=== PATIENT | male | born 1990 | race Caucasian/White ===

== ENCOUNTER 2020-07-07 13:01 | Outpatient (REF) | payer OTHER, SELFPAY | END 2020-07-07 13:02 | disposition home or self-care (01) | LOC: HO.LAB 13:01 | PROVIDERS: Visit Provider Internal Medicine | DX: Z20.828 Contact with and (suspected) exposure to other viral communicable diseases (principal) | CPT/HCPCS: U0003 ==

== ENCOUNTER 2020-08-30 07:37 | Emergency (ER) | payer OTHER, SELFPAY ==
[2020-08-30 07:52] VITALS: BP 125/81; PULSE 78; RESP 18; TEMP 36.7; O2SAT 95; BMI 23.6
--- NOTE | 2020-08-30 08:51 | ED.EYEPROB ---
HPI - Eye Problem General Chief complaint: Eye Problems Stated complaint: fb eye Time Seen by Provider: 08/30/20 08:19 Source: patient Mode of arrival: ambulatory History of Present Illness HPI Narrative: 30-year-old male with no significant past medical history presenting to ED complaining of right eye pain/irritation since Tuesday S/P using metal fabricator welder. Denies wearing glasses or contacts. Tetanus not up today. Reports mild intermittent blurry vision. Denies visual loss, pain with extraocular motions, or visualized foreign body MD chief complaint: eye pain and eye redness Related Data Previous Rx's Medication Instructions Recorded polymyxin B sulf-trimethoprim 1 drp OPHTHALMIC-RIGHT QID 7 Days 08/30/20 #10 ml Allergies Allergy/AdvReac Type Severity Reaction Status Date / Time No Known Allergies Allergy Unverified 05/22/20 19:45 [No Known Allergies*] Review of Systems Review of Systems: Constitutional: No Weight loss, No Fever, No Chills ENT/Mouth: +eye irritation, No Ear Pain, No sore throat, No Rhinorrhea Cardiovascular: No Chest Pain, No SOB Skin: No Skin Lesions, No rash Neuro: No headache Yes all other systems are reviewed and are negative [facility] Past Medical History Attestation statement: The following information was validated with the patient. Medical History (Updated 08/30/20 @ 09:37 by SATISH Joya) No known health problems Social History Social History Advance Directives: No Advance Directives Information Provided: Yes Physical Exam Vital Signs: Vital Signs: Last Vital Signs Temp 98.1 F 08/30/20 07:52 Pulse 78 08/30/20 07:52 Resp 18 08/30/20 07:52 BP 125/81 08/30/20 07:52 Pulse Ox 95 08/30/20 07:52 Body Mass Index 23.6 Const: General: cooperative and healthy appearing Orientation/consciousness: patient oriented x3 Limitations: no limitations HENMT: Head: Yes normal to inspection Ears: hearing grossly normal bilaterally General nose exam: Normal external nose present Face and sinus: Yes normal facial exam Eyes: Other: Right eye with mild irritation. + small metal foreign body in right eye at 9 o'clock region. No rust ring. EOMs intact without pain. No evidence of globe rupture. General: appearance normal, both eyes and all related structures Pupils: Equal, round and reactive pupils present EOM: EOMs intact bilaterally (Without pain) Direct Ophthalmoscopy: normal light reflex and no photophobia Neck: Neck: Yes normal visual inspection Skin: Rashes: no rashes Wounds: no wounds Neuro: General: patient oriented x3 Cranial nerves: Yes Equal, round and reactive pupils present Gait exam (Neuro): Normal gait present Extrem: General: Yes normal to inspection Procedures FB Removal Eye Location: eye (R) Topical anesthetic used: tetracaine Foreign body: metal Evidence of corneal penetration: No Technique: cotton tip swab and needle Procedure performed under: slit-lamp Post-procedure medication: ophthalmic antibiotic Patient tolerated procedure: well Complications: incomplete foreign body removal MDM - Eye Problem MDM Narrative Medical decision making narrative: Eye was stained with fluorescein without evidence of corneal abrasion. Used 18 gauge needle and cotton tip with slit lamp used by Dr. Vivar, with near complete removal of foreign body. Small residual metal in eye. Will have patient follow-up with Ophthalmology on Tuesday Antibiotic drops sent to pharmacy Discharge Plan Discharge Clinical Impression: Eye foreign body Qualifiers: Encounter type: initial encounter Laterality: right Qualified Code(s): T15.91XA - Foreign body on external eye, part unspecified, right eye, initial encounter Patient Disposition: Home, Self-Care Instructions: Eye Foreign Body (ED) Additional Instructions: You have a piece of metal in your eye, most of the metal was removed today in the emergency department Polymyxin B antibiotic eyedrops were sent to the pharmacy, use as prescribed You need to follow-up with the software sales manager on Tuesday They will remove the remaining parts of the foreign body If he developed visual loss, unbearable pain return to the ED sooner Take Tylenol Motrin at home for pain Prescriptions: New polymyxin B sulf-trimethoprim 10,000 unit- 1 mg/mL drops 1 drp ophthalmic-Right QID 7 Days Qty: 10 RF: 0 Referrals: Julián Lynn [Physician] - 2 days (on Tuesday)
[2020-08-30] MEDS: Tetracaine HCl/PF 0.5% Oph Sol 4 ML DROPS 3 DROP EYE-RIGHT (08:53)
[2020-08-30] MEDS: Fluorescein Sodium STRIP 1 STRIP EYE-RIGHT (08:53)
--- NOTE | 2020-08-30 09:54 | PC.NURSE ---
visual acuity 20/50 right 20/40 left
== END 2020-08-30 09:52 | disposition home or self-care (01) ==
PROVIDERS: Emergency Provider Emergency Medicine Emergency Medical Services
DX: T15.01XA Foreign body in cornea, right eye, initial encounter (principal); X58.XXXA Exposure to other specified factors, initial encounter
CPT/HCPCS: 65222; 90471; 90715; 99283; 99284

== ENCOUNTER 2020-09-20 13:20 | Emergency (ER) | payer MEDICAID, SELFPAY ==
[2020-09-20 16:33] VITALS: BP 116/70; PULSE 72; RESP 16; TEMP 37.1; O2SAT 97; BMI 23.7
--- NOTE | 2020-09-20 17:52 | ED.EYEPROB ---
HPI - Eye Problem General Chief complaint: Eye Problems Stated complaint: FB in eye Time Seen by Provider: 09/20/20 17:02 Source: patient Mode of arrival: ambulatory Limitations: no limitations History of Present Illness HPI Narrative: Patient presents to ED for right eye irritation. Patient states metal/foreign body went into right eye 4 days ago. Patient states still has foreign body in right eye after 4 days. Patient denies any change in vision just eye irritation and watery discharge. MD chief complaint: eye redness Related Data Previous Rx's Medication Instructions Recorded polymyxin B sulf-trimethoprim 1 drp OPHTHALMIC-RIGHT QID 7 Days 08/30/20 #10 ml erythromycin 0.5 inch OPHTHALMIC (EYE) QID 7 09/20/20 Days #3.5 g ibuprofen 400 mg PO Q6H PRN #28 tab 09/20/20 Allergies Allergy/AdvReac Type Severity Reaction Status Date / Time No Known Allergies Allergy Unverified 05/22/20 19:45 [No Known Allergies*] Review of Systems Review of Systems: Yes all other systems are reviewed and are negative Constitutional: Constitutional: Reports as per HPI and Reports no additional constitutional complaints Eyes: Eyes: Reports as per HPI and Reports no additional eye complaints Comments: Right eye irritation and redness ENT: Reports system reviewed and no additional complaints, except as documented and Reports as per HPI Cardiovascular: Cardiovascular: Reports as per HPI and Reports no additional cardiovascular complaints Respiratory: Respiratory: Reports as per HPI and Reports no additional respiratory complaints Gastrointestinal: Gastrointestinal: Reports as per HPI and Reports no additional gastrointestinal complaints Musculoskeletal: Musculoskeletal: Reports no additional musculoskeletal complaints and Reports as per HPI Neurologic: Reports system reviewed and no additional complaints, except as documented and Reports as per HPI Psychiatric: Psychiatric: Reports no additional psychiatric complaints and Reports as per HPI [facility] Past Medical History Medical History (Updated 09/21/20 @ 00:00 by Background Daemon) No known health problems Social History Social History Smoked in Last 30 Days: No Use of substances other than those prescribed or required for medical reasons: No Advance Directives: No Advance Directives Information Provided: No Physical Exam Vital Signs: Vital Signs: Last Vital Signs Temp 98.8 F 09/20/20 16:33 Pulse 72 09/20/20 16:33 Resp 16 09/20/20 16:33 BP 116/70 09/20/20 16:33 Pulse Ox 97 09/20/20 16:33 Body Mass Index 23.7 Const: General: cooperative, healthy appearing, comfortable, no acute distress, well developed, alert, awake and Physically active Orientation/consciousness: patient oriented x3 HENMT: Head: Yes normal to inspection, Yes No palpable skull fracture present, Yes normocephalic and Yes atraumatic Eyes: Other: Positive for very minute small rustic object on right lower side of iris. Fluorescein dye test negative for any corneal abrasion/signs of globe rupture under wood's lamp. Negative for leakage of fluid from iris on dye test Neck: Neck: Yes normal visual inspection and Yes full ROM Chest: Chest palpation & inspection: normal inspection of the chest and normal palpation of entire chest wall Resp: Effort & Inspection: normal respiratory effort and able to speak in complete sentences Cardio: Jugular venous distension: no JVD Heart sounds: S1 normal heart sound present and S2 normal heart sound present GI: Inspection: Yes normal to inspection Palpation (GI): Soft to palpation, not firm, nontender, no guarding and not rigid : General: No CVA tenderness and Yes no CVA tenderness Back/Spine/Pelvis: Back: no CVA tenderness, No CVA tenderness and No back tenderness Skin: General skin exam: no rashes or lesions noted and elasticity normal Neuro: General: patient oriented x3 and CN's II-XI intact bilaterally Cranial nerves: Yes CN's II-XII intact bilaterally Extrem: General: Yes normal to inspection and Yes full ROM Psych: Appearance: grossly normal, well kempt and not disheveled Course Course Course Narrative: Will do bedside eye exam with fluorescein stye, tetracaine, and Wood's lamp. Reevaluation(s) Reevaluation #1: Right eye positive for small rusting foreign body at right lower aspect of iris. I anesthetized with tetracaine. Fluorescein dye was used and was negative for signs of corneal abrasion or globe rupture. Removal of foreign body was not successful after mulltiple attempts. Patient will follow-up with Ophthalmology for removal of foreign body and rusting. Patient will be sent home with antibiotics and follow up with opthomology on tuesday. Right eye visual acuity is 20/40. Left eye visual acuity 20/30 . Patient states he is up-to-date with tetanus Time: 18:19 MDM - Eye Problem MDM Narrative Medical decision making narrative: foreign body in eye Discharge Plan Discharge Clinical Impression: Foreign body in eye Patient Disposition: Home, Self-Care Instructions: Eye Foreign Body (ED) Additional Instructions: Return to the ED for change or loss of vision, eye pain, eye swelling, headache, red yellow discharge, or any other concerning symptoms. Prescriptions: New erythromycin 5 mg/gram (0.5 %) ointment 0.5 inch ophthalmic (eye) QID 7 Days Qty: 3.5 RF: 0 ibuprofen 400 mg tablet 400 mg PO Q6H PRN (Reason: pain) Qty: 28 RF: 0 No Action polymyxin B sulf-trimethoprim 10,000 unit- 1 mg/mL drops 1 drp ophthalmic-Right QID 7 Days Qty: 10 RF: 0 Referrals: Julián Lynn [Physician] - 2 days (Right eye foreign Body removal attempt failed. Need to be removed by opthomalogist. Patient started on erythromycin antibiotics. Rigth eye flourscein dye test negative for corneal abrasions or signs of globe rupture. ) Stand Alone Forms: Work/School Release Interventions: ED Discharge Assessment Last Done: 09/20/20 18:37 Discharge Date/Time: 09/20/20 18:42 Print Language: Micronesian
[2020-09-20] MEDS: Fluorescein Sodium STRIP 1 STRIP EYE-RIGHT (18:05)
[2020-09-20] MEDS: Tetracaine HCl/PF 0.5% Oph Sol 4 ML DROPS 3 DROP EYE-RIGHT (18:06)
--- NOTE | 2020-09-20 18:07 | PC.NURSE ---
SATISH JUÁREZ AT BEDSIDE TO REMOVE METAL FROM RIGHT EYE UNABLE TO REMOVE PIECE OF METAL PT WILL NEED TO F/U WITH CONSTRUCTION CHECKER.
== END 2020-09-20 18:42 | disposition home or self-care (01) ==
PROVIDERS: Emergency Provider Emergency Medicine
DX: T15.01XA Foreign body in cornea, right eye, initial encounter (principal); H57.11 Ocular pain, right eye; X58.XXXA Exposure to other specified factors, initial encounter; Y93.9 Activity, unspecified; Y92.9 Unspecified place or not applicable; Y99.9 Unspecified external cause status
CPT/HCPCS: 99283; 99284

== ENCOUNTER 2022-07-01 14:37 | Emergency (ER) | payer MEDICAID, SELFPAY ==
--- NOTE | ~2022-07-01 | CT_ITS ---
EXAMINATION: CT ABDOMEN AND PELVIS WITHOUT CONTRAST CLINICAL INFORMATION: Abdominal pain COMPARISON: None TECHNIQUE: Multidetector volumetric imaging was performed from the superior aspect of the liver through the pubic symphysis. Sagittal and coronal reformatted images were obtained on the technologist's workstation. This CT examination was performed using dose optimization techniques as appropriate, variously including the following: *Automated exposure control *Adjustment of mA and/or kV according to patient size (this includes techniques or standardized protocols for targeted exams where dose is matched to indication/reason for exam; i.e. extremities or head) *Use of iterative reconstruction technique DLP: 424 mGy-cm FINDINGS: LUNG BASES: The visualized lung bases are unremarkable. LIVER, GALLBLADDER, AND BILIARY TREE: The liver is normal in size, shape, and attenuation. No focal hepatic lesion or biliary ductal dilatation is present. The gallbladder is unremarkable with no evidence of radiopaque gallstones, gallbladder wall thickening, or obvious pericholecystic inflammatory changes. PANCREAS: Region the pancreas is is not adequately defined. This is likely due to unopacified adjacent bowel. No obvious finding. No free fluid. SPLEEN: Unremarkable. ADRENAL GLANDS: Unremarkable. KIDNEYS AND URETERS: The kidneys are normal in size, shape, and attenuation. No hydronephrosis, hydroureter, or calculi seen. No perinephric stranding. BLADDER: Unremarkable. GASTROINTESTINAL TRACT: Marked colonic stool in the cecum and ascending colon and transverse colon. More mild to moderate stool in the descending and sigmoid. There is air in the rectum. A normal appendix is not seen The bowel pattern is overall nonobstructing. ABDOMINAL WALL: No significant hernia is appreciated. LYMPH NODES: Surgical clips in the right groin. Some mildly prominent nodes are noted in the groin. There is no bulky periaortic adenopathy. Some prominent mesenteric nodes are noted. VASCULAR: Unremarkable. PELVIC VISCERA: Unremarkable. OSSEOUS STRUCTURES: There is a lucent bony lesion the right iliac bone. This measures 5.7 x 3 x 4.5 cm. Some bony septations are noted. CT/CT abdomen pelvis wo IV con IMPRESSION: Colonic stool is noted. Overall the bowel pattern is felt to be nonobstructing. This exam is limited due to lack of oral and intravenous contrast. No free fluid is identified. It should be noted normal appendix is not visualized but no definitive suspicion around the cecum. Correlation recommended here. Note is made of a large lucent right iliac bony lesion. Pre and postcontrast MRI is recommended to further evaluate Fleischner guidelines were followed.
[2022-07-01 14:38] VITALS: BP 122/81; PULSE 75; RESP 18; TEMP 36.6; O2SAT 98; BMI 22.4
[2022-07-01 15:22] LABS: MANUAL DIFF FLAG NO
[2022-07-01 15:28] LABS: Basophils Percent Auto 0.5 % (0-2); Eosinophils Absolute Auto 0.1 X10*3/uL (0.0-0.4); Eosinophils Percent Auto 2.5 % (0-4); Hematocrit 40.4 % (42.0-52.0); Hemoglobin 13.8 g/dl (14.0-18.0); Imm Gran Abs Auto 0.01 X10*3/uL (0.00-0.03); Imm Gran Pct Auto 0.3 % (0.0-0.4); Lymphocytes Absolute Auto 1.7 X10*3/uL (1.2-4.9); Lymphocytes Percent Auto 43.7 % (20-40); Mean Corpuscular HGB Conc 34.2 g/dl (31.0-36.0); Mean Corpuscular Hemoglobin 29.2 pg (27.0-33.0); Mean Corpuscular Volume 85.6 fL (80.0-98.0); Mean Platelet Volume 9.3 fL (9.4-12.4); Monocytes Absolute Auto 0.4 X10*3/uL (0.1-1.2); Monocytes Percent Auto 11.1 % (2-11); Neutrophils Absolute Auto 1.7 x10*3/uL (2.0-8.3); Neutrophils Percent Auto 41.9 % (45-73); Platelet Count 179 X10*3/uL (160-400); Red Blood Count 4.72 X10*6/uL (4.60-5.80); Red Cell Distribution Width 12.1 % (11.0-16.0)
[2022-07-01 15:40] LABS: Alanine Aminotransferase 9 U/L (0-40); Albumin Level 4.7 g/dL (3.5-5.0); Alkaline Phosphatase 57 U/L (39-117); Anion Gap 14 (12-20); Aspartate Amino Transferase 16 U/L (5-37); Bilirubin Direct 0.5 mg/dL (0.0-0.5); Bilirubin Total 1.5 mg/dL (0.0-1.0); Blood Urea Nitrogen 9 mg/dL (9-16); Calcium 9.7 mg/dL (8.4-10.2); Carbon Dioxide 29 mmol/L (22-29); Chloride 102 mmol/L (96-108); Estimated Glomerular Filt Rate > 60; Glucose Random 94 mg/dL (60-115); Lipase 47 U/L (8-78); Potassium 5.2 mmol/L (3.3-5.1); Sodium 140 mmol/L (135-145)
[2022-07-01 15:41] LABS: Appearance Urine Clear; Color Urine Yellow; Glucose Urine UA Negative (Negative); Leukocyte Esterase Urine Negative (Negative); Nitrite Urine Negative (Negative); Specific Gravity - Urine <= 1.005 (1.005-1.025); Urine Blood Negative (Negative); Urine Ketones Negative (Negative); Urine Protein Negative (Neg-Trace)
--- NOTE | 2022-07-01 20:14 | ED.ABDPAIN ---
HPI - Abdominal Pain General Chief Complaint: Abdominal Pain Stated Complaint: lower R side discomfort Time Seen by Provider: 07/01/22 20:12 Source: patient Mode of arrival: ambulatory Limitations: no limitations History of Present Illness HPI narrative: 31-year-old male presents for evaluation of greater than 1 month of right lower abdominal tenderness. He describes this pain as constant and aching, and feels it is right below his large intestine. He does have a history of lymphadenopathy on the right side and has had a biopsy of a right inguinal groin lymph node. He is on Suboxone, states that he eats a healthy diet, and does not participate in any alcohol or illicit drug activity. Does not describe fevers, chills, chest pain or pressure, abdominal distention, nausea, vomiting, melena, hematochezia, or abnormal weight loss. MD elicited complaint: abdominal pain Pertinent past history: constipation Onset (ago): month(s) Pain Consistency: constant Location: RLQ Severity: moderate Quality: aching and dull Migration to: no migration Relieving factors: nothing Associated symptoms: denies other symptoms Related Data Previous Rx's Medication Instructions Recorded polymyxin B sulfate 10,000 1 drp ophthalmic-Right QID 7 days 08/30/20 unit-trimethoprim 1 mg/mL eye drops #10 mL erythromycin 5 mg/gram (0.5 %) eye 0.5 inch ophthalmic (eye) QID 09/20/20 ointment foreign body in eye 7 days #3.5 grams ibuprofen 400 mg tablet 400 mg PO Q6H PRN pain #28 tabs 09/20/20 Allergies Allergy/AdvReac Type Severity Reaction Status Date / Time No Known Allergies Allergy Unverified 05/22/20 19:45 [No Known Allergies*] Review of Systems Review of Systems Constitutional: No Fever, No Chills ENT/Mouth: No Ear Pain, No Hoarseness, No sore throat Eyes: No Eye Pain, No Swelling, No Redness, No Foreign Body Cardiovascular: No Chest Pain, No SOB Respiratory: No Cough, No Dyspnea Gastrointestinal: No Nausea, No Vomiting, No Diarrhea, positive right lower quadrant abdominal Pain Genitourinary: No Dysuria, No Hematuria Musculoskeletal: No joint pain, No Myalgias, No Joint Swelling Skin: No Skin lacerations, No rash Neuro: No Weakness, No Numbness, No Paresthesias, No Loss of Consciousness, No Dizziness, No Headache Psych: No Anxiety/Panic, No Depression Heme/Lymph: no easy bruising, no Lymphadenopathy Endocrine: No Polyuria, No Polydipsia Yes all other systems are reviewed and are negative [facility] Past Medical History Attestation statement: The following information was validated with the patient. Source: old records reviewed Medical History No known health problems Social History Social History Advance Directives: No Advance Directives Information Provided: No Physical Exam ED Vital Signs: Vital Signs - 24 hr 07/01/22 14:38 07/01/22 20:32 Temperature 97.9 F 98.7 F Pulse Rate 75 55 Respiratory Rate 18 Blood Pressure 122/81 129/72 Pulse Oximetry 98 100 Oxygen Delivery Method Room Air Room Air BMI result Body Mass Index 22.4 Appearance: Alert. Oriented X3. No acute distress. Thin. Eyes: Pupils equal, round and reactive to light. Sclera nonicteric. ENT: Pharynx normal. Moist mucous membranes. Neck: Normal inspection. Neck supple. CVS: Normal heart rate and rhythm. Pulses normal. Respiratory: No respiratory distress. Breath sounds normal. Abdomen: Soft and right lower quadrant tender to palpation. Skin: Skin warm and dry. Normal skin color. Normal skin turgor. Extremities: No lower extremity edema. Gait well-balanced well coordinated. Neuro: No motor deficit. No sensory deficit. Cranial nerves 2-12 intact. Course Course Course Narrative: 31-year-old male with past medical history of right sided inguinal lymphadenopathy with negative biopsy in 2016, history of Suboxone has been substance free since 2019, presents with greater than 1 month of right lower quadrant diffuse abdominal pain. Patient does not report any abnormal weight loss, melena, hematochezia, nausea or vomiting. Physical exam indicates tenderness to palpation to the right lower quadrant. Vital signs are stable and within normal limits, lab values were drawn while patient was in the emergency department waiting room with mild abnormality with a WBC of 4.0, neutrophils 41.9, lymphocyte 43.7, monocytes 11.1. Potassium is 5.2, bili 1.5, without transaminitis. Will order CT scan of abdomen and pelvis to rule out acute abdomen. While patient's white count and vital signs are stable, I feel that further investigation to the right lower quadrant abdominal pain is warranted, considering that he has had a history of right-sided lymphadenopathy with biopsy. 22:00 CT scan indicates stool burden, also noted a large lucent right iliac bony lesion with recommendation of pre and post-contrast MRI. 22:[address] tiger text out [address] Schmidt, heme Oncology, as well as Dr. Valenzuela. Patient is going to need MRI, bone scan, bone biopsy, and possible oncology services. Patient does not have an established primary care, I did reach out to Dr. Valenzuela and did refer patient to our [facility] location on [facility] [address] to establish primary care. Dr. Schmidt will be waiting patient's phone call tomorrow. I did discuss in detail, the possibilities of these results with the patient. He does understand that he must follow-up with heme Onc for MRI, bone scan, and biopsy. I did discuss his constipation, he will use MiraLax daily to help with bowel movements. Patient does have a healthy lifestyle, takes no medications other than Suboxone. Patient verbalized understanding of and agrees to plan of care discharge home. Verbalized understanding of signs and symptoms indicating need for emergent intervention. Consultations Consultation #1: Brayan Time: 22:03 Consultation #2: Nicolas Time: 22:03 MDM - Abdominal Pain Differential Diagnosis Differential diagnosis: Likely abdominal pain, acute appendicitis, calculus of kidney, constipation, diverticulitis and small bowel obstruction Medical Records Attestation: I reviewed the patient's medical records. Lab Data Attestation: I reviewed the patient's lab results. Result diagrams: 07/01/22 15:16 07/01/22 15:16 Labs: Lab Results 07/01/22 07/01/22 07/01/22 Range/Units 15:16 15:16 15:16 WBC 4.0 L (4.8-10.8) X10*3/uL RBC 4.72 (4.60-5.80) X10*6/uL Hgb 13.8 L (14.0-18.0) g/dl Hct 40.4 L (42.0-52.0) % MCV 85.6 (80.0-98.0) fL MCH 29.2 (27.0-33.0) pg MCHC 34.2 (31.0-36.0) g/dl RDW 12.1 (11.0-16.0) % Plt Count 179 (160-400) X10*3/uL MPV 9.3 L (9.4-12.4) fL Immature Gran % (Auto) 0.3 (0.0-0.4) % Neut % (Auto) 41.9 L (45-73) % Lymph % (Auto) 43.7 H (20-40) % Perry % (Auto) 11.1 H (2-11) % Eos % (Auto) 2.5 (0-4) % Baso % (Auto) 0.5 (0-2) % Lymph # (Auto) 1.7 (1.2-4.9) X10*3/uL Perry # (Auto) 0.4 (0.1-1.2) X10*3/uL Eos # (Auto) 0.1 (0.0-0.4) X10*3/uL Baso # (Auto) 0.0 (0.0-0.2) X10*3/uL Abs Immat Gran (auto) 0.01 (0.00-0.03) X10*3/uL Absolute Neuts (auto) 1.7 L (2.0-8.3) x10*3/uL Absolute Nucleated RBC 0.000 (0.0-0.012) X10*3/uL Nucleated RBC % (auto) 0.0 (0.0-0.2) /100WBC Sodium 140 (135-145) mmol/L Potassium 5.2 H (3.3-5.1) mmol/L Chloride 102 (96-108) mmol/L Carbon Dioxide 29 (22-29) mmol/L Anion Gap 14 (12-20) BUN 9 (9-16) mg/dL Creatinine 0.76 (0.5-1.4) mg/dL Estim Creat Clear Calc 149.0 Estimated GFR > 60 Random Glucose 94 (60-115) mg/dL Calcium 9.7 (8.4-10.2) mg/dL Total Bilirubin 1.5 H (0.0-1.0) mg/dL Direct Bilirubin 0.5 (0.0-0.5) mg/dL AST 16 (5-37) U/L ALT 9 (0-40) U/L Alkaline Phosphatase 57 (39-117) U/L Total Protein 7.0 (6.5-8.0) g/dL Albumin 4.7 (3.5-5.0) g/dL Lipase 47 (8-78) U/L Urine Color Yellow Urine Appearance Clear Urine pH 6.0 (5.0-9.0) Ur Specific [place] <= 1.005 (1.005-1.025) Urine Protein Negative (Neg-Trace) mg/dL Urine Glucose (UA) Negative (Negative) mg/dL Urine Ketones Negative (Negative) mg/dL Urine Blood Negative (Negative) Urine Nitrite Negative (Negative) Ur Leukocyte Esterase Negative (Negative) Imaging Data CT scan - abdomen: Attestation: I personally reviewed and interpreted this imaging study as follows: Radiologist's impression: FINDINGS: LUNG BASES: The visualized lung bases are unremarkable.? LIVER, GALLBLADDER, AND BILIARY TREE: The liver is normal in size, shape, and attenuation. No focal hepatic lesion or biliary ductal dilatation is present. The gallbladder is unremarkable with no evidence of radiopaque gallstones, gallbladder wall thickening, or obvious pericholecystic inflammatory changes.? PANCREAS: Region the pancreas is is not adequately defined. This is likely due to unopacified adjacent bowel. No obvious finding. No free fluid.? SPLEEN: Unremarkable.? ADRENAL GLANDS: Unremarkable.? KIDNEYS AND URETERS: The kidneys are normal in size, shape, and attenuation. No hydronephrosis, hydroureter, or calculi seen. No perinephric stranding. ? BLADDER: Unremarkable.? GASTROINTESTINAL TRACT: Marked colonic stool in the cecum and ascending colon and transverse colon. More mild to moderate stool in the descending and sigmoid. There is air in the rectum. A normal appendix is not seen The bowel pattern is overall nonobstructing. ABDOMINAL WALL: No significant hernia is appreciated.? LYMPH NODES: Surgical clips in the right groin. Some mildly prominent nodes are noted in the groin. There is no bulky periaortic adenopathy. Some prominent mesenteric nodes are noted. VASCULAR: Unremarkable. PELVIC VISCERA: Unremarkable.? OSSEOUS STRUCTURES: There is a lucent bony lesion the right iliac bone. This measures 5.7 x 3 x 4.5 cm. Some bony septations are noted.? CT/CT abdomen pelvis wo IV con IMPRESSION: Colonic stool is noted. Overall the bowel pattern is felt to be nonobstructing. This exam is limited due to lack of oral and intravenous contrast. No free fluid is identified. It should be noted normal appendix is not visualized but no definitive suspicion around the cecum. Correlation recommended here. ? Note is made of a large lucent right iliac bony lesion. Pre and postcontrast MRI is recommended to further evaluate ? Fleischner guidelines were followed. Discharge Plan Discharge Clinical Impression: Abdominal pain, Bone lesion Patient Disposition: Home, Self-Care Instructions: Abdominal Pain (ED) Additional Instructions: You were evaluated for right lower quadrant abdominal pain. CT scan of the abdomen and pelvis shows constipation. Please take MiraLax daily. Incidental finding is a 5.7 x 3 x 4.5 cm lucent bony lesion of the right iliac bone. I did reach out to our heme oncologist Dr. Schmidt, she is expecting your call tomorrow. Please call and request an appointment for evaluation. You will need to have an MRI, bone scan, and possibly a bone biopsy. For primary care, I have referred you to Dr. Valenzuela. His office is located on [facility] in [facility]. Thank you for choosing this emergency department for evaluation. Please follow-up with primary care physician as needed. Return to the emergency department for any new, concerning, or worsening symptoms. Prescriptions: No Action polymyxin B sulf-trimethoprim 10,000 unit- 1 mg/mL drops 1 drp ophthalmic-Right QID 7 Days Qty: 10 0RF Rx Instructions: while awake; do not exceed 6 doses in 24 hours erythromycin 5 mg/gram (0.5 %) ointment 0.5 inch ophthalmic (eye) QID 7 Days Qty: 3.5 0RF ibuprofen 400 mg tablet 400 mg PO Q6H PRN (Reason: pain) Qty: 28 0RF Referrals: Doron Schmidt MD [Physician] - 1 day (Bony lesion, rule out malignancy) Dao Valenzuela MD [Physician] - 1 day (Establish primary care) Stand Alone Forms: Work/School Release
[2022-07-01 20:32] VITALS: BP 129/72; PULSE 55; TEMP 37.1; O2SAT 100
[2022-07-01 23:26] VITALS: BP 113/70; PULSE 74; RESP 18; O2SAT 98
== END 2022-07-01 23:28 | disposition home or self-care (01) ==
PROVIDERS: Emergency Provider Emergency Medicine
DX: M89.8X8 Other specified disorders of bone, other site (principal); R10.9 Unspecified abdominal pain; Z79.899 Other long term (current) drug therapy
CPT/HCPCS: 36415; 74176; 80053; 81003; 82248; 83690; 85025; 99283; 99284

== ENCOUNTER 2022-07-14 13:31 | Outpatient (REF) | payer MEDICAID, SELFPAY ==
--- NOTE | ~2022-07-14 | XR_ITS ---
EXAMINATION: CR X-RAY PRE-MRI SCREENING CLINICAL INFORMATION: Pre-MRI screening. COMPARISON: None TECHNIQUE: 3 views of the orbits were obtained. FINDINGS: No radiopaque foreign body is seen. The nasal bones and bony orbits are intact. Mild opacification is seen at the base of the right maxillary sinus. The mastoid air cells appear clear. The soft tissues are unremarkable. XR/XR pre mri screening IMPRESSION: 1. No radiopaque foreign body. 2. Mild opacification at the base of the right maxillary sinus is nonspecific, but could represent a small air-fluid level and/or mucosal thickening.
--- NOTE | ~2022-07-14 | MR_ITS ---
EXAMINATION: MR HIP WITHOUT AND WITH CONTRAST, RIGHT CLINICAL INFORMATION: Right hip discomfort. Right lower quadrant persistent pain. Lucent right iliac bone lesion. COMPARISON: CT abdomen/pelvis dated 07/01/2022. TECHNIQUE: MRI of the right hip was performed before and after the intravenous injection of 7.5 mL Gadavist on a high-field scanner. FINDINGS: ACETABULAR LABRUM: Fluid signal within the undersurface of the anterosuperior labrum which could represent a shallow, nondisplaced undersurface tear. ARTICULAR CARTILAGE/BONE: Mild articular cartilage signal heterogeneity and surface irregularity with small marginal osteophytes. No stress reaction, fracture, or avascular necrosis. Within the right acetabulum, there is a predominantly fat density intraosseous lesion measuring approximately 5.9 x 5.5 x 2.6 cm. There are thin trabeculations within the lesion with a small central cystic focus measuring 0.5 cm. No significant postcontrast enhancement within this region. Minimal posterior central edema without enhancement. No additional lytic or blastic osseous lesion. MUSCLES/TENDONS: Intact. JOINT FLUID/BURSA: Trace joint effusion. INTRAPELVIC STRUCTURES: Unremarkable. MR/MR hip RT wo/w con IMPRESSION: 1. Intraosseous lesion within the right acetabulum measuring up to 5.9 cm. Thin trabeculations within the lesion with a small central cystic focus. No significant postcontrast enhancement. 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 No additional lytic or blastic osseous lesion. 2. Possible shallow, nondisplaced undersurface tear of the anterosuperior labrum. 3. Mild right hip osteoarthritis. Trace joint effusion. No stress reaction, fracture, or avascular necrosis.
== END 2022-07-14 13:32 | disposition home or self-care (01) ==
LOC: HO.MRI 13:31
PROVIDERS: Visit Provider Internal Medicine Medical Oncology
DX: M89.8X8 Other specified disorders of bone, other site (principal); Z78.9 Other specified health status
CPT/HCPCS: 73723; A9585

== ENCOUNTER 2022-12-29 11:32 | Emergency (ER) | payer OTHER, MEDICAID, SELFPAY ==
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
[2022-12-29 11:34] VITALS: BP 129/78; PULSE 78; RESP 18; TEMP 37.1; O2SAT 98; BMI 22.1
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
== END 2022-12-29 14:57 | disposition home or self-care (01) ==
PROVIDERS: Emergency Provider Emergency Medicine
DX: S01.81XA Laceration without foreign body of other part of head, initial encounter (principal); R51.9 Headache, unspecified; W26.9XXA Contact with unspecified sharp object(s), initial encounter; Y93.9 Activity, unspecified; Y92.9 Unspecified place or not applicable; Y99.9 Unspecified external cause status
CPT/HCPCS: 12051; 70450; 99283; 99284

== ENCOUNTER → 2023-01-03 07:56 | Outpatient (BNVA) | payer OTHER, SELFPAY | PROVIDERS: Visit Provider Physician Assistant Medical | DX: S01.81XA Laceration without foreign body of other part of head, initial encounter (principal); W22.8XXA Striking against or struck by other objects, initial encounter; Z48.02 Encounter for removal of sutures | CPT/HCPCS: 99203; 99212 ==

== ENCOUNTER 2023-01-04 12:53 | Emergency (ER) | payer MEDICAID, SELFPAY ==
--- NOTE | ~2023-01-04 | CT_ITS ---
EXAMINATION: CT HEAD WITHOUT CONTRAST CLINICAL INFORMATION: Headache, nausea. COMPARISON: 12/29/[address] scan[address] TECHNIQUE: Contiguous axial imaging was performed from the skull base to vertex without intravenous administration of contrast. Coronal and sagittal reformatted images were obtained. This CT examination was performed using dose optimization techniques as appropriate, variously including the following: *Automated exposure control *Adjustment of mA and/or kV according to patient size (this includes techniques or standardized protocols for targeted exams where dose is matched to indication/reason for exam; i.e. extremities or head) *Use of iterative reconstruction technique DLP: 737 mGy-cm FINDINGS: The cortical sulci are normal. The lateral ventricles are symmetrical. The third and fourth ventricles are in their normal midline position. The basilar and prepontine cisterns are unremarkable. There is no acute intra or extracerebral abnormality. There is no mass effect or midline shift. Sections through the bony calvarium are unremarkable. The paranasal sinuses and show a mass, mildly hypoattenuating compared to the adjacent osseous structures in the left ethmoid and sphenoid sinuses with mild expansion including an associated shallow sella turcica. Homogeneous sclerotic changes are also seen in the left frontal sinus. More homogeneous osseous nodule seen medially in the right frontal sinus. Mild mucosal thickening and small air-fluid levels are seen in the maxillary sinuses. The bony orbits and orbital contents are unremarkable. CT/CT head/brain wo IV con IMPRESSION: 1. No acute intracranial pathology. 2. 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 This is nonspecific, but the overall appearance is benign/low-grade without significant change. Consideration includes a fibro-osseous lesion such as fibrous dysplasia as previously described. Given the patient's relative young age is could be monitored for change with dedicated sinus CT scan in 3-6 months. 3. Mild inflammatory changes in the maxillary sinuses.
[2023-01-04 13:17] VITALS: BP 145/80; PULSE 78; RESP 18; TEMP 36.8; O2SAT 98; BMI 21.7
--- NOTE | 2023-01-04 13:18 | ED_ITS ---
HPI - General Adult General Chief complaint: Head Injury <SATISH Duke - Last Filed: 01/04/23 13:21> Stated complaint: Nausea/R side headache <SATISH Duke - Last Filed: 01/04/23 13:21> Time Seen by Provider: 01/04/23 16:06 <SATISH Duke - Last Filed: 01/04/23 13:21> Source: patient, RN notes reviewed and old records reviewed <SATISH Jackson - Last Filed: 01/04/23 16:32> Mode of arrival: ambulatory <SATISH Jackson - Last Filed: 01/04/23 16:32> History of Present Illness HPI narrative: 32-year-old male with no significant past medical history presenting to the ED complaining of right-sided headache and nausea since head injury on 12/29/2022. Patient was evaluated in our ED after incident which occurred at work, states was removing clamp from shelf and metal object came out & hit in face, requiring suture repair, no LOC at that time. Denies taking anticoagulation. Patient had CT during prior visit which did not show any acute findings. Patient reports mild headache at present, describes episode of feeling like fluid shifted in brain yesterday. Denies vomiting, vision change/loss, neck pain, numbness, tingling, weakness <SATISH Jackson - Last Filed: 01/04/23 16:32> Onset (ago): day(s) <SATISH Jackson - Last Filed: 01/04/23 16:32> Related Data Home medications: Home Medications Medication Instructions Recorded Confirmed buprenorphine 2 mg-naloxone 0.5 mg 1 strip sublingual DAILY 07/09/22 08/03/22 sublingual film (Suboxone) buprenorphine 8 mg-naloxone 2 mg 1 strip sublingual DAILY 07/09/22 08/03/22 sublingual film (Suboxone) nicotine (polacrilex) 4 mg gum 1 ea PO DAILY 08/03/22 08/03/22 Previous Rx's Medication Instructions Recorded ibuprofen 400 mg tablet 400 mg PO Q6H PRN pain #28 tabs 09/20/20 cephalexin 500 mg capsule 500 mg PO QID #28 caps 12/29/22 <SATISH Duke - Last Filed: 01/04/23 13:21> Allergies/adverse reactions: Allergies Allergy/AdvReac Type Severity Reaction Status Date / Time No Known Allergies Allergy Verified 01/04/23 13:17 [No Known Allergies*] <SATISH Duke - Last Filed: 01/04/23 13:21> Review of Systems Review of Systems: Constitutional: No Fever, No Chills, No Fatigue, No Malaise ENT/Mouth: No Ear Pain, No Nasal Congestion, No Sinus Pain, No Hoarseness, No sore throat, No Rhinorrhea, No Swallowing Difficulty Eyes: No Eye Pain, No Swelling, No Redness, No Foreign Body, No Discharge, No Vision Changes Cardiovascular: No Chest Pain, No SOB Respiratory: No Cough, No Dyspnea Gastrointestinal: + Nausea, No Vomiting, No Diarrhea, No Constipation, No Abdominal pain Musculoskeletal: No joint pain, No Myalgias, No Joint Swelling Skin: No Skin Lesions, No rash Neuro: No Weakness, No Numbness, No Paresthesias, No Loss of Consciousness, No Dizziness, +Headache <SATISH Jackson Last Filed: 01/04/23 16:32> Yes all other systems are reviewed and are negative <SATISH Jackson Last Filed: 01/04/23 16:32> Constitutional: Constitutional: Reports as per HPI <SATISH Jackson Last Filed: 01/04/23 16:32> Neurologic: Denies Abnormal speech present <SATISH Jackson Last Filed: 01/04/23 16:32> [facility] Past Medical History Attestation statement: The following information was validated with the patient. <SATISH Jackson Last Filed: 01/04/23 16:32> Medical History: Medical History No known health problems <SATISH uDke Last Filed: 01/04/23 13:21> Surgical History: Surgical History History of lymph node biopsy History of tonsillectomy <SATISH Duke Last Filed: 01/04/23 13:21> Family History Family History: Family History Paternal Grandmother Breast cancer <SATISH Duke - Last Filed: 01/04/23 13:21> Social History Social History: Social History Household Members: None Housing: Apartment Are you a primary child care counselor to a significant other at home: No Do you presently have visiting nurse or other home services: No Patient Tobacco Use Status: Former Tobacco user service: No Current occupational status: employed and unemployed <SATISH Duke - Last Filed: 01/04/23 13:21> Physical Exam ED Vital Signs: Vital Signs - 24 hr 01/04/23 13:17 Temperature 98.3 F Pulse Rate 78 Respiratory Rate 18 Blood Pressure 145/80 H Pulse Oximetry 98 Oxygen Delivery Method Room Air BMI result Body Mass Index 21.7 <SATISH Duke - Last Filed: 01/04/23 13:21> Vital Signs - 24 hr 01/04/23 13:17 Temperature 98.3 F Pulse Rate 78 Respiratory Rate 18 Blood Pressure 145/80 H Pulse Oximetry 98 Oxygen Delivery Method Room Air BMI result Body Mass Index 21.7 <SATISH Jackson - Last Filed: 01/04/23 16:32> Const General: cooperative, healthy appearing and no acute distress <SATISH Jackson Last Filed: 01/04/23 16:32> Orientation/consciousness: patient oriented x3 <SATISH Jackson Last Filed: 01/04/23 16:32> Limitations: no limitations <SATISH Jackson Last Filed: 01/04/23 16:32> HENMT Other: Healing laceration to forehead. No surrounding erythema <SATISH Jackson Last Filed: 01/04/23 16:32> Head: Yes normal to inspection, Yes atraumatic, No Cortes's sign and No raccoon eyes <SATISH Jackson Last Filed: 01/04/23 16:32> Ears: hearing grossly normal bilaterally <SATISH Jackson Last Filed: 01/04/23 16:32> General nose exam: Normal external nose present <Sulma Castano PA - Last Filed: 01/04/23 16:32> Face and sinus: Yes normal facial exam <Sulma Castano PA - Last Filed: 01/04/23 16:32> Eyes General: appearance normal, both eyes and all related structures <Sulma Castano PA - Last Filed: 01/04/23 16:32> Pupils: Equal, round and reactive pupils present <Sulma Castano PA - Last Filed: 01/04/23 16:32> EOM: EOMs intact bilaterally <Sulma Castano PA - Last Filed: 01/04/23 16:32> Neck Other: No midline cervical spinous tenderness <Sulma Castano PA - Last Filed: 01/04/23 16:32> Neck: Yes normal visual inspection and Yes no meningeal signs <Sulma Castano PA - Last Filed: 01/04/23 16:32> Resp Effort & Inspection: normal respiratory effort and no respiratory distress <Sulma Castano PA - Last Filed: 01/04/23 16:32> Cardio Rate: regular rate <Sulma Castano PA - Last Filed: 01/04/23 16:32> Skin Rashes: no rashes <Sulma Castano PA - Last Filed: 01/04/23 16:32> Neuro General: patient oriented x3, gait normal, tone normal, moves all extremities, no meningeal signs, no focal motor deficits and CN's II-XI intact bilaterally <Sulma Castano PA - Last Filed: 01/04/23 16:32> Cranial nerves: Yes CN's II-XII intact bilaterally, Yes Equal, round and reactive pupils present and Yes Bilaterally intact EOM present <Sulma Castano PA - Last Filed: 01/04/23 16:32> Cognition (Neuro): normal cognition <Sulma Castano PA - Last Filed: 01/04/23 16:32> Speech: No Abnormal speech present <Sulma Castano PA - Last Filed: 01/04/23 16:32> Gait exam (Neuro): Normal gait present <Sulma Castano PA - Last Filed: 01/04/23 16:32> Motor exam (neuro): 5/5 motor strength present throughout <SATISH Jackson - Last Filed: 01/04/23 16:32> Extrem General: Yes normal to inspection <SATISH Jackson - Last Filed: 01/04/23 16:32> Course Course Course Narrative: RME - 32 yo male with recent head injury 12/29 presents to the ER for evaluation of nausea and right sided headaches for the last 7 days. He had a CT scan the day of the injury, had some stitches which are now out. He wants another CT scan, explained there is no utility in CT scans for concussions but he insists <SATISH Duke - Last Filed: 01/04/23 13:21> RME - 32 yo male with recent head injury 12/29 presents to the ER for evaluation of nausea and right sided headaches for the last 7 days. He had a CT scan the day of the injury, had some stitches which are now out. He wants another CT scan, explained there is no utility in CT scans for concussions but he insists 1610--CT head/brain wo IV con IMPRESSION: 1.? No acute intracranial pathology. 2.? 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 This is nonspecific, but the overall appearance is benign/low-grade without significant change. Consideration includes a fibro-osseous lesion such as fibrous dysplasia as previously described. Given the patient's relative young age is could be monitored for change with dedicated sinus CT scan in 3-6 months. 3.? Mild inflammatory changes in the maxillary sinuses. >Results discussed with patient, discussed abnormal sinus mass in needed follow up for repeat imaging in 3-6 months. Discussed worrisome signs and symptoms and strict return precautions, and when to return to the emergency department. They verbalized understanding and feel safe for discharge at this time. <SATISH Jackson - Last Filed: 01/04/23 16:32> Medical Decision Making Medical Decision Making [facility] Narrative: 32-year-old male with no significant past medical history presenting to the ED complaining of right-sided headache and nausea since head injury on 12/29/2022. On exam vital signs stable, NAD, nontoxic appearing, healing laceration to forehead, no focal neuro deficits, ambulating with steady gait. Concern for concussion. Low suspicion for ICH. Previous visit/scans reviewed. Repeat CT scan ordered in triage per patient request Please refer to course for remaining clinical decision making, interpretation of labs/imaging results, and discussions with consultants and/or family members. <SATISH Jackson - Last Filed: 01/04/23 16:32> Differential Diagnosis Differential Diagnoses: The differential diagnosis associated with the presentation includes <SATISH Jackson - Last Filed: 01/04/23 16:32> As above <SATISH Jackson - Last Filed: 01/04/23 16:32> Lab Data MDM Lab Attestation statement: I reviewed the patient's lab results. <SATISH Jackson - Last Filed: 01/04/23 16:32> Radiology Impression Discussion of test interpretation with radiology: I have reviewed the radiologist's reading. <SATISH Jackson - Last Filed: 01/04/23 16:32> External Record Review External record reviewed: Inpatient record, Office record, Outpatient record, Prior outpatient labs, Prior outpatient radiology, Primary care record and Outside ED record <SATISH Jackson - Last Filed: 01/04/23 16:32> Discharge Plan Discharge Clinical Impression: Concussion without loss of consciousness <SATISH Duke - Last Filed: 01/04/23 13:21> Patient Disposition: Home, Self-Care <SATISH Duke - Last Filed: 01/04/23 13:21> Instructions: Concussion (ED) <SATISH Duke - Last Filed: 01/04/23 13:21> Additional Instructions: You likely have a concussion Your CT scan shows no acute intracranial pathology. You do have a left ethmoid and sphenoid is sinus mass, this is appearing benign however we do recommend you have a repeat dedicated sinus CT in 3-6 months, this can be obtained with her primary care doctor Please practice brain rest, avoid bright lights, screen time Take Tylenol and Motrin Follow-up with your doctor <SATISH Duke - Last Filed: 01/04/23 13:21> Prescriptions: No Action ibuprofen 400 mg tablet 400 mg PO Q6H PRN (Reason: pain) Qty: 28 0RF buprenorphine-naloxone [Suboxone] 2-0.5 mg film 1 strip sublingual DAILY buprenorphine-naloxone [Suboxone] 8-2 mg film 1 strip sublingual DAILY nicotine (polacrilex) 4 mg gum 1 ea PO DAILY cephalexin 500 mg capsule 500 mg PO QID Qty: 28 0RF <SATISH Duke - Last Filed: 01/04/23 13:21> Referrals: [facility] [Outside] Physician,None [Primary Care Provider] - Jonel Vivar MD [Emergency Provider] - <SATISH Duke - Last Filed: 01/04/23 13:21>
== END 2023-01-04 16:38 | disposition home or self-care (01) ==
PROVIDERS: Emergency Provider Emergency Medicine Emergency Medical Services
DX: S06.0X0A Concussion without loss of consciousness, initial encounter (principal); R51.9 Headache, unspecified; Y29.XXXA Contact with blunt object, undetermined intent, initial encounter; Y93.9 Activity, unspecified; Y92.9 Unspecified place or not applicable; Y99.0 Civilian activity done for income or pay; Z79.899 Other long term (current) drug therapy; Z87.891 Personal history of nicotine dependence
CPT/HCPCS: 70450; 99282; 99283; 99284